=== PATIENT | male | born 1985 | race Hispanic/Latino ===

== ENCOUNTER 2017-08-17 02:00 | Emergency (ER) | payer OTHER ==
[2017-08-17 02:20] VITALS: TEMP 97.8
[2017-08-17] MEDS ORDERED: Sodium Chloride 0.9% 1,000 ML IV STA (02:53)
--- NOTE | 2017-08-17 03:07 | ED PDOC ---
HPI: General Adult Time Seen by Provider: 08/17/17 02:29 Chief Complaint (Nursing): Palpitations Chief Complaint (Provider): Palpitations History Per: Patient History/Exam Limitations: no limitations Onset/Duration Of Symptoms: Hrs Current Symptoms Are (Timing): Still Present Additional Complaint(s): Cuco Tobin is a 32 year old male with a past medical history of hypertension, who is presenting to the ER with complains of palpitations and associated high blood pressure, onset a few hours ago s/p eating dinner. Patient states that he was laying down after eating [place] food and drinking some wine, when he felt like his heart was racing and had an irregular rhythm. He reports that his heart rate was around 120 and his blood pressure was approximately 160/109. Patient also notes that he was taken off of his hypertension medications due to significant weight loss and increased activity levels. He states that he feels an improvement in symptoms upon arrival to ED and denies any nausea, vomiting, diarrhea, chest pain, shortness of breath, or dizziness. Patient offers no other medical complaints at this time. PMD: Flor Oconnell Past Medical History Reviewed: Historical Data, Nursing Documentation, Vital Signs Vital Signs: Last Vital Signs Temp 97.8 F 08/17/17 02:09 Pulse 85 08/17/17 03:55 Resp 16 08/17/17 03:55 BP 119/74 08/17/17 03:55 Pulse Ox 96 08/17/17 03:55 - Medical History PMH: HTN - Surgical History Surgical History: No Surg Hx - Family History Family History: States: Unknown Family Hx - Social History Alcohol: Occasional Drugs: Denies - Allergies Allergies/Adverse Reactions: Allergies Allergy/AdvReac Type Severity Reaction Status Date / Time Sulfa (Sulfonamide Allergy unknown Verified 08/17/17 02:13 Antibiotics) Review of Systems ROS Statement: Except As Marked, All Systems Reviewed And Found Negative Cardiovascular: Positive for: Palpitations. Negative for: Chest Pain Respiratory: Negative for: Shortness of Breath Gastrointestinal: Negative for: Nausea, Vomiting, Diarrhea Neurological: Negative for: Dizziness Physical Exam - Reviewed Nursing Documentation Reviewed: Yes Vital Signs Reviewed: Yes - Physical Exam Appears: Positive for: Non-toxic, No Acute Distress Head Exam: Positive for: ATRAUMATIC, NORMAL INSPECTION, NORMOCEPHALIC Skin: Positive for: Normal Color, Warm, Dry Eye Exam: Positive for: EOMI, Normal appearance, PERRL Neck: Positive for: Normal, Painless ROM, Supple Cardiovascular/Chest: Positive for: Tachycardia. Negative for: Murmur Respiratory: Positive for: Normal Breath Sounds. Negative for: Respiratory Distress Gastrointestinal/Abdominal: Positive for: Normal Exam, Soft. Negative for: Tenderness Back: Positive for: Normal Inspection. Negative for: L CVA Tenderness, R CVA Tenderness, Vertebral Tenderness Extremity: Positive for: Normal ROM. Negative for: Deformity, Swelling Neurologic/Psych: Positive for: Alert, Oriented. Negative for: Motor/Sensory Deficits - Laboratory Results Result Diagrams: 08/17/17 03:15 08/17/17 03:15 - ECG O2 Sat by Pulse Oximetry: 100 (RA) Pulse Ox Interpretation: Normal Medical Decision Making Medical Decision Making: Time: 2:53 Impression: palpitations in setting of knonw hypertension Initial Plan: --EKG --Alcohol Serum --CMP --Drug Screen --Thyroid Stimuluating Hormone --Troponin --ED Urine Dipstick --CBC --IV Fluids 4:25 Patient remains asymptomatic in ED. Labs reviewed with no clinically significant abnormalities. Upon provider evaluation, patient is stable and ready for discharge. Patient will follow-up with [facility] for further workup and evaluation. Scribe Attestation: Documented by Alondra Ventura, acting as a scribe for Brijesh Crowley MD. Provider Scribe Attestation: All medical record entries made by the Scribe were at my direction and personally dictated by me. I have reviewed the chart and agree that the record accurately reflects my personal performance of the history, physical exam, medical decision making, and the department course for this patient. I have also personally directed, reviewed, and agree with the discharge instructions and disposition. Disposition - Clinical Impression Clinical Impression: Palpitations - Patient ED Disposition Is Patient to be Admitted: No - Disposition Disposition: Routine/Home Disposition Time: 04:30 Condition: STABLE Additional Instructions: follow up with [facility] Instructions: Palpitations Forms: [facility] (Welsh)
[2017-08-17 03:20] LABS: BASO % 0.5 % (0.0-2.0); EOS # 0.1 K/uL (0.0-0.7); EOS % 1.3 % (0.0-4.0); HEMOGLOBIN 15.7 g/dL (12.0-18.0); LYMPH # 1.8 K/uL (1.0-4.3); LYMPH % 23.4 % (20.0-40.0); MEAN CELL VOLUME 86.3 fl (80.0-94.0); MEAN CORPUSCULAR HEMOGLOBIN 29.4 pg (27.0-31.0); MEAN CORPUSCULAR HGB CONC 34.1 g/dL (33.0-37.0); MEAN PLATELET VOLUME 8.5 fl (7.2-11.7); MONO # 0.7 K/uL (0.0-0.8); MONO % 8.5 % (0.0-10.0); NEUT # 5.2 K/uL (1.8-7.0); NEUT % 66.3 % (50.0-75.0); NRBC % 0.1 % (0.0-0.0); RBC 5.33 Mil/uL (4.40-5.90); RED CELL DISTRIBUTION WIDTH 12.7 % (11.5-14.5); WHITE BLOOD COUNT 7.9 K/uL (4.8-10.8)
[2017-08-17 03:28] LABS: ALB/GLOB RATIO 1.3 (1.0-2.1); ALBUMIN 4.5 g/dL (3.5-5.0); ALT/SGPT 44 U/L (21-72); AST/SGOT 26 U/L (17-59); BLOOD UREA NITROGEN 14 mg/dl (9-20); CALCIUM 9.2 mg/dL (8.4-10.2); GFR AFRICAN-AMERICAN > 60; GFR NON-AFRICAN AMERICAN > 60
[2017-08-17 03:39] VITALS: RESP 16
[2017-08-17 04:40] VITALS: O2SAT 100
[2017-08-17 04:44] VITALS: BP 120/74
[2017-08-17 04:45] VITALS: PULSE 74
--- NOTE | 2017-08-17 12:42 | CARD ---
APPROVED REPORT EKG Measurement Heart [id number] <Conclusion> Normal sinus rhythm Normal ECG
== END 2017-08-17 04:44 | disposition home or self-care (01) ==
LOC: H.ER 02:00
DX: R00.2 Palpitations (principal); I10 Essential (primary) hypertension
CPT/HCPCS: 80053; 80320; 84443; 84484; 85025; 93005; 99285; J7040